=== PATIENT | female | born 1965 | race Caucasian/White ===

== ENCOUNTER → 2024-01-01 15:02 | Outpatient (REF) | payer BC, SELFPAY | LOC: RAD 15:02 | PROVIDERS: ATTENDING PHYSICIAN Physician Assistant Medical | DX: G89.29 Other chronic pain (principal) | CPT/HCPCS: 72110 ==

== ENCOUNTER → 2024-01-07 06:41 | Outpatient (REF) | payer BC, SELFPAY | LOC: PAVMRI 06:41 | PROVIDERS: ATTENDING PHYSICIAN Physician Assistant Medical | DX: M51.36 Other intervertebral disc degeneration, lumbar region (principal) | CPT/HCPCS: 72148 ==

== ENCOUNTER → 2024-06-14 11:55 | Outpatient (REF) | payer BC, SELFPAY | LOC: WDC 11:55 | PROVIDERS: ATTENDING PHYSICIAN Physician Assistant Medical; FAMILY PHYSICIAN Family Medicine | DX: Z12.31 Encounter for screening mammogram for malignant neoplasm of breast (principal) | CPT/HCPCS: 77063; 77067 ==

== ENCOUNTER → 2024-12-30 09:48 | Outpatient (REF) | payer BC, SELFPAY | LOC: WDC 09:48 | PROVIDERS: ATTENDING PHYSICIAN Physician Assistant Medical | DX: R92.2 Inconclusive mammogram (principal) | CPT/HCPCS: 76641 ==